=== PATIENT | male | born 1965 | race Caucasian/White ===

== ENCOUNTER 2016-09-04 09:50 | Day surgery (SDC) | payer OTHER ==
[~2016-09-04] VITALS: Ht 175.3 cm; Wt 82.0 kg
[~2016-09-04 09:50] MED LIST: 0.9% Sodium Chloride 1,000 ML IV PRN; Sodium Chloride LOK Flush 10 mL Syringe IV PRN; fentaNYL-PF 50 mCg/mL 2 mL Inj IVPUSH PRN
[2016-09-04] MEDS ORDERED: LISI10TA PO (10:14)
[2016-09-04] MEDS ORDERED: SERT50TA9 PO (10:14)
[2016-09-04 10:18] VITALS: BP 142/83; PULSE 74; RESP 14; O2SAT 98
--- NOTE | 2016-09-04 11:27 | PCM.ENDCOL ---
Colonoscopy Date of Service: Sep 04, 2016 Physician David Cuevas MD Pre Procedure Diagnosis: Screening colon cancer family history of colon cancer Post Procedure Dx & Findings: Polyp hemorrhoid diverticula Procedure Colonoscopy Prep adequate Withdrawal time 10 minutes After unremarkable rectal examination the Olympus video colonoscope was inserted patient's anal canal and was advanced to cecum. Landmarks were identified including the ileocecal valve and appendiceal orifice. Scope was withdrawn systematically. Visualized colonic mucosa showed healthy shiny mucosa with normal healthy-appearing vasculature. In the cecum there was a subtle millimeter polyp which was removed completely using cold forceps. In the sigmoid colon there are a few small diverticuli. In the rectum retroflexion was done which showed hemorrhoids. Anal canal was inspected carefully on the way out and hemorrhoids noted. Impression Polyp 1 status post complete removal Diverticuli Family history of colon cancer Hemorrhoids Recommendation Repeat colonoscopy in 5 years Diverticular diet Presedation Assessment Risks and Benefits Informed consent was obtained from the patient after all risks and benefits including but not limited to drug reaction, infection, pain, bleeding, perforation, as well as alternatives were discussed. Patient monitoring Continuous pulse oximetry, cardiac monitoring, blood pressure monitoring, IV access, and oxygen at 2L per nasal cannula. Periprocedural Fentanyl: Fentanyl 100mcg Incrementally Midazolam: Midazolam 5mg Incrementally Complications There were no periprocedural complications identified. Post Procedure Plan Post Procedure Recommendations 1. Restrict activities today. 2. Resume normal activities in the morning. 3. Resume medications. 4. Patient informed of normal post procedure side effects as bloating, drowsiness, blood streaking in the stool. 5. average risk CRCS. If colon polyps come back as: -Hyperplastic- can repeat colonoscopy in 10 years -Tubular adenoma- repeat colonoscopy in 5 years -Tubulovillous/villous adenoma- repeat colonoscopy in 3 years -If any dysplasia- return to clinic as soon as possible 6. Please don't hesitate to call me with any questions. David Cuevas MD Sep 04, 2016 11:27
[2016-09-04 11:32] VITALS: BP 123/75; PULSE 64; RESP 12; O2SAT 96
[2016-09-04 11:41] VITALS: BP 102/68; PULSE 56; RESP 12; O2SAT 98
--- NOTE | 2016-09-05 14:02 | PATH ---
SURGICAL PATHOLOGY Attending Physician:David Cuevas M.D. CASE STATUS: Signed Out PATIENT NAME: GI ROMERO PID: [id number] : 1965 DATE COLLECTED:09/04/2016 22:25 SPECIMEN: Colon, Biopsy CLINICAL HISTORY: 1). CECAL POLYP FINAL DIAGNOSIS: 1.CECAL POLYP: TUBULAR ADENOMA. ICD10 CODE D12.6 GROSS DESCRIPTION: The specimen is received in one formalin filled container labeled with the patient's name, sublabeled "cecal polyp" and consists of a 0.1 x 0.1 x 0.1 CM portion of tissue which is entirely submitted in one cassette. 09/04/2016 DAC MICRO DESCRIPTION: See diagnosis. ICD-9 CODES: CPT CODES: 1: 64654 Electronically Signed Out Tyler Andrews MD [facility] Pathology [facility], [place] [address] Technical component performed at [facility], [facility] [address], [address]
== END 2016-09-04 23:59 ==
LOC: END 09:50
PROVIDERS: ATTEND Internal Medicine
DX: Z12.11 Encounter for screening for malignant neoplasm of colon (principal); Z80.0 Family history of malignant neoplasm of digestive organs; K57.30 Diverticulosis of large intestine without perforation or abscess without bleeding; K64.9 Unspecified hemorrhoids; D12.0 Benign neoplasm of cecum; I10 Essential (primary) hypertension
CPT/HCPCS: 45380; G0500; J2250; J3010; J7030